=== PATIENT | female | born 1985 | race Caucasian/White ===

== ENCOUNTER 2018-01-10 15:11 | Emergency (ER) | payer MEDICAID, SELFPAY ==
[2018-01-10 15:12] VITALS: BP 169/90; PULSE 111; RESP 18; TEMP 37.1; O2SAT 95; BMI 44.2
[2018-01-10 15:40] LABS: Red Blood Cells-Urine 0 SEEN /hpf (0-5)
[2018-01-10] MEDS: 0.9% Normal Saline 1,000 ML 1000 ML IV (15:43)
[2018-01-10] MEDS: Acetaminophen 500 MG Tablet 1000 MG PO (15:43)
[2018-01-10 15:47] LABS: Absolute Lymphocyte Count 3.05 X10^3/ul (0.83-4.51); Absolute Neutrophil Count 3.3 X10^3/uL (2.0-7.7); Basophil# 0.04 X10^3/uL; Basophil% 0.5 % (0-1); Eosinophil# 0.07 X10^3/uL; Eosinophils% 0.9 % (0-5); Hematocrit 41.2 % (37-47); Hemoglobin 13.4 g/dl (12.0-15.0); Lymphocyte # 3.05 X10^3/ul (4.0); Lymphocyte % 40.7 % (19-41); Mean Corp Hgb Conc 32.5 g/gl (32-36); Mean Corpuscular Hgb 30.5 pg (27.0-32.0); Mean Corpuscular Volume 93.6 fL (81-99); Mean Platelet Vol. 8.8 fl (6.2-12.0); Monocyte# 0.99 X10^3/uL; Monocyte% 13.2 % (0-10); Neutrophil # 3.33 X10^3/uL (2.7-7.7); Neutrophil % 44.6 % (47-70); POSITIVE COUNT NO; POSITIVE DIFFERENTIAL NO; POSITIVE MORPHOLOGY NO; Platelet Count 264 K/mm3 (150-450); RBC Distribution Width CV 14.2 % (11.6-14.6); RBC Distribution Width SD 48.6 fl (35.1-43.9); White Blood Count 7.5 K/mm3 (4.4-11.0)
[2018-01-10 16:01] LABS: Anion Gap 8 (5-15); BUN 9 mg/dL (7-18); BUN/Creat Ratio 11.5 RATIO (10-20); Calcium,Total 8.9 mg/dL (8.5-10.1); Chloride 108 mmol/L (98-107); Creatinine, Serum 0.78 mg/dL (0.55-1.02); EST Glomerular Filtration Rate 90 mL/min (>60); Est Glom Filt Rate - Afr Amer 109 mL/min (>60); Estimated Creatinine Clearance 87.76 ml/min; Glucose 86 mg/dL (74-106); Potassium 3.6 mmol/L (3.5-5.1); Sodium Level 141 mmol/L (136-145)
[2018-01-10 16:03] LABS: Color, Urine Yellow (Yellow); Glucose, Dipstick Normal (Normal); Ketone-Dipstick 5 mg/dl (Negative); Leukocyte Esterase-Dipstick 25 /ul (Negative); Nitrite-Dipstick Negative (Negative); Occult Blood-Urine Negative /ul (Negative); Protein-Dipstick 30 mg/dl (Negative); Urine Bilirubin Dipstick Negative (Negative); Urine Clarity Clear (Clear); Urine Urobilinogen 1 mg/dl (Normal); Urine pH 6.5 (5.0 - 8.0)
[2018-01-10 16:09] LABS: Bacteria 1+ /hpf (None Seen); Mucous, Urine 1+ /hpf (<or=2+); Squamous Epithelial Cells - UA 0-5 SEEN /hpf (5-10); White Blood Cells 0-5 SEEN /hpf (0-5)
[2018-01-10 16:44] LABS: hCG Titer Quant., Serum 8756 mIU/mL (<9 non-preg)
--- NOTE | 2018-01-10 17:47 | ED.VISSUMM ---
- ER Visit Summary Date of Service: 01/10/18 Chief Complaint: Abdominal pain History of Present Illness: The patient is a [address] Faheem Bermudez and Dr. Richie Sharpe III. She reports that she took a home test 2 weeks ago that was positive. She reports that she has had lower right abdominal pain for the past 2 weeks. She reports that it is a dull pain is 10 out of 10 at worst and 710 currently. Is worsened by laying on her right side. She relieved by nothing. She denies any vaginal bleeding or discharge. She is a . She reports that she has left shoulder pain began approximate one half weeks ago. This is not relieved with standing. It is not worsened by laying down. She does report that is worsened by movement. She denies any trauma. Physical Examination: Vitals: Stable. Afebrile. General: Well-nourished and well-developed. Head: Normocephalic atraumatic. Neck: Supple, no lymphadenopathy. No JVD. Nontender. Cardiovascular: Regular rate and rhythm. No murmurs. Respiratory: No respiratory distress. Clear to auscultation bilaterally. Abdominal: Soft, mild tenderness palpation the right adnexal region, nondistended, normal bowel sounds. No guarding, rebound, or peritoneal signs. Back: Nontender. Extremities: Nontender, no edema. Skin: Normal color, no rash. Neurologic: Alert and oriented ?3. Cranial nerves II through XII are intact. Normal strength and sensation. Psych: Normal affect. Test Results: CBC is more for 7 neutrophils 45 monocytes 13. Chem-7 is more for chloride 108. UA is marked for leukocytes and 1+ bacteria. Quantitative hCG is 8756. Blood type is O-. Transvaginal ultrasound shows a single intrauterine 6 weeks and 4 days. Emergency Department Course and Treatment: Patient was treated with Keflex p.o. and her urine was sent for culture. She was given Tylenol p.o. and is resting comfortably. Treatment Plan: Patient was discussed Dr. Faheem Bermudez. She will be discharged with instructions to follow-up with her next week as previously scheduled. Return to the emergency department for any worsening symptoms. Disposition: To home in improved and stable condition. Impression: 1. First trimester . 2. Bacteriuria. This note was generated with [employer] software. It may contain incorrect words, spelling, and punctuation that were not noted in review of the chart prior to signing ED Disposition - Plan for ED Patient: Disposition: Home or Assisted Living Chief Complaint: Instructions: ED Care Prescriptions: Ondansetron [Zofran Odt] 4 mg PO Q8H PRN PRN #10 tablet PRN Reason: Nausea Cephalexin [Keflex] 500 mg PO BID #14 capsule Referrals: Jayleen Marrufo MD [STAFF PHYSICIAN] - Additional Instructions: Follow up with Dr. Marrufo in 2-3 weeks if you're improving. Follow up within 1 week if you're not improving.
[2018-01-10 17:50] VITALS: BP 108/73; PULSE 64; RESP 18; O2SAT 99
[2018-01-10] MEDS: Cephalexin 250 MG Capsule 500 MG PO (18:00)
== END 2018-01-10 18:07 | disposition home or self-care (01) ==
PROVIDERS: Emergency Provider Emergency Medicine; Family Provider Family Medicine; PCP Family Medicine
DX: O28.8 Other abnormal findings on antenatal screening of mother (principal); R10.31 Right lower quadrant pain; M25.512 Pain in left shoulder; R51 Headache; R05 Cough; Z3A.01 Less than 8 weeks gestation of pregnancy
CPT/HCPCS: 76817; 80048; 81001; 84702; 85025; 86900; 87086; 87088; 96360; 96361; 99284; J7030; A4216

== ENCOUNTER → 2018-01-15 16:38 | Outpatient (CLI) | payer MEDICAID, SELFPAY ==
[2018-01-15 17:19] LABS: Absolute Lymphocyte Count 2.78 X10^3/ul (0.83-4.51); Absolute Neutrophil Count 3.4 X10^3/uL (2.0-7.7); Basophil# 0.04 X10^3/uL; Basophil% 0.5 % (0-1); Eosinophil# 0.12 X10^3/uL; Eosinophils% 1.6 % (0-5); Hematocrit 39.8 % (37-47); Hemoglobin 12.9 g/dl (12.0-15.0); Lymphocyte # 2.78 X10^3/ul (4.0); Lymphocyte % 38.1 % (19-41); Mean Corp Hgb Conc 32.4 g/gl (32-36); Mean Corpuscular Hgb 30.4 pg (27.0-32.0); Mean Corpuscular Volume 93.6 fL (81-99); Monocyte# 1.01 X10^3/uL; Monocyte% 13.8 % (0-10); Neutrophil # 3.35 X10^3/uL (2.7-7.7); Platelet Count 259 K/mm3 (150-450); Red Blood Count 4.25 M/mm3 (4.2-5.4); White Blood Count 7.3 K/mm3 (4.4-11.0)
[2018-01-15 17:20] LABS: POSITIVE COUNT NO; POSITIVE DIFFERENTIAL NO; POSITIVE MORPHOLOGY NO
[2018-01-15 18:00] LABS: Glucose Challenge Gest 1H 50g 95 mg/dL (70-140)
[2018-01-15 18:45] LABS: HIV - WCH Non-Reactive (Nonreactive); Rubella IgG 60.6 IU/mL
[2018-01-17 03:50] LABS: Rapid Plasmin Reagin (RPR) NONREACTIVE (NONREACTIVE)
[2018-01-17 11:37] LABS: HEPATITIS B SURFACE AG Negative (Negative)
== END ==
PROVIDERS: Family Provider Family Medicine; PCP Family Medicine; Visit Provider Obstetrics & Gynecology
DX: Z34.90 Encounter for supervision of normal pregnancy, unspecified, unspecified trimester (principal)
CPT/HCPCS: 36415; 82950; 85025; 86592; 86703; 86762; 86850; 86900; 87340

== ENCOUNTER → 2018-01-15 17:36 | Outpatient (CLI) | payer MEDICAID, SELFPAY ==
[2018-01-15 20:31] LABS: Chlamydia Trachomatis by PCR Negative (Negative); Neisserai gonorrhoeae by PCR Negative (Negative); Probe Check PASS; Sample Adequacy Control PASS; Specimen Processing Control PASS
[2018-01-23 11:48] LABS: HPV APTIMA, High Risk Negative (Negative)
== END ==
PROVIDERS: Visit Provider Obstetrics & Gynecology
DX: Z12.4 Encounter for screening for malignant neoplasm of cervix (principal); Z34.90 Encounter for supervision of normal pregnancy, unspecified, unspecified trimester
CPT/HCPCS: 87086; 87088; 87106; 87491; 87591; 88175; G0145

== ENCOUNTER 2018-02-04 14:51 | Day surgery (SDC) | payer MEDICAID, SELFPAY ==
[2018-02-04] VITALS (8 sets, daily range): BP systolic 104–147; BP diastolic 71–99; PULSE 85–124; RESP 18–20; TEMP 36.6–36.9; O2SAT 93–99; BMI 44.4
--- NOTE | 2018-02-04 13:30 | POC_PTH ---
PATIENT: AISHWARYA JONES [place] [facility] [id number] AGE/SX: 32/F ROOM: RE02/04/[address]: Dr. Yadira Blandon MD : 1985 BED: DIS: 02/04/2018 SPEC #: [id number] RECD: 02/05/18 10:06 STATUS: REY MARY #: [id number] MINA: 02/04/18 13:[address]: Yadira Blandon DEPT: SURGICAL PATHOLOGY RECD BY: Yariel Doyle ENTERED: 02/05/18 12:20 SP TYPE: PROD CONC OTHR DR: Dr. Richie Sharpe III, MD Tissues: Product of conception, NOS Procedures: Surgery Specimen Level IV HEADER OPERATION: Suction dilation and curettage PRE-OP DIAGNOSIS: Inevitable SAB TISSUE SUBMITTED: Products of conception MICROSCOPIC DIAGNOSIS Products of conception: [place], gestational endometrium and immature chorionic villi (products of conception). SJ:marcia 02/06/18 MICROSCOPIC DESCRIPTION Slides are reviewed. GROSS DESCRIPTION Received in fixative is one container labeled with the patient's name and designated products of conception. The specimen consists of multiple fragments of pink hemorrhagic soft tissue that in aggregate measure 7 x 5 x 2 cm. tissue is not identified. Business Solution Analyst sections are submitted in two cassettes. / JAY JAY:marcia 02/05/18 TC:5 CPT: 17306
[2018-02-04 13:49] LABS: Absolute Lymphocyte Count 1.74 X10^3/ul (0.83-4.51); Absolute Neutrophil Count 2.8 X10^3/uL (2.0-7.7); Basophil# 0.02 X10^3/uL; Basophil% 0.4 % (0-1); Eosinophil# 0.05 X10^3/uL; Eosinophils% 0.9 % (0-5); Hematocrit 37.5 % (37-47); Hemoglobin 12.3 g/dl (12.0-15.0); Lymphocyte # 1.74 X10^3/ul (4.0); Lymphocyte % 32.3 % (19-41); Mean Corp Hgb Conc 32.8 g/gl (32-36); Mean Corpuscular Hgb 30.4 pg (27.0-32.0); Mean Corpuscular Volume 92.6 fL (81-99); Mean Platelet Vol. 8.6 fl (6.2-12.0); Monocyte# 0.74 X10^3/uL; Monocyte% 13.7 % (0-10); Neutrophil # 2.83 X10^3/uL (2.7-7.7); Neutrophil % 52.5 % (47-70); Platelet Count 238 K/mm3 (150-450); RBC Distribution Width CV 13.9 % (11.6-14.6); Red Blood Count 4.05 M/mm3 (4.2-5.4); White Blood Count 5.4 K/mm3 (4.4-11.0)
[2018-02-04 13:50] LABS: POSITIVE COUNT NO; POSITIVE DIFFERENTIAL NO; POSITIVE MORPHOLOGY NO
[2018-02-04 14:26] LABS: hCG Titer Quant., Serum 1008 mIU/mL (<9 non-preg)
--- NOTE | 2018-02-04 14:31 | NURSING ---
DR WENDI HOLLEY
--- NOTE | 2018-02-04 14:36 | NURSING ---
DR ADAME RETURNED CALL
--- NOTE | 2018-02-04 14:45 | ED.VISSUMM ---
- ER Visit Summary Date of Service: 02/04/18 Chief Complaint: [Vaginal bleeding] History of Present Illness: The patient is a 32 F [is the emergency department complaint of vaginal bleeding that started around 11:30 AM today. Patient states that she is about 10 weeks and her last menstrual period was November 24. Patient's METAL MINE INSPECTOR is Dr. Marrufo whom she saw yesterday in the office at which time patient had an ultrasound that showed demise. Patient has O- blood type and was started on RhoGam yesterday. Patient states that she went through more than 4 pads an hour since the bleeding is started and she describes lower abdominal pelvic cramping. Patient states she is passing large clots. She denies feeling lightheaded or dizzy at this time. Patient is .] Physical Examination: [HEENT-PERRLA, EOMI. Cranial nerves II through XII grossly intact. TMs clear. Mucous membranes moist. No adenopathy. Cardiovascular-regular rate and rhythm without murmur or ectopy Lungs-clear to auscultation, chest wall stable without crepitus or subcu emphysema Abdomen-normoactive bowel sounds, soft, nontender, no rebound or rigidity, no peritoneal signs. Pelvic exam-patient has normal external genitalia. On speculum exam large amount of blood and cloudy immediately exited through the speculum as it was inserted. Patient continues to bleed and I do not have access to ring forceps at this time to attempt to evacuate all the blood out of the vaginal vault. Extremities-intact ?4, normal range of motion, normal pulses, atraumatic] Test Results: [CBC with differential obtained for white count 5.4, hemoglobin 12, hematocrit 37.5, platelets 238. Blood type is O-. Type and screen was sent.] Emergency Department Course and Treatment: [I discussed case with Dr. Schmitt BN that Dr. Marrufo is not available today] patient will be evaluated and likely will require D&C and OR. Treatment Plan: [2 OR today for D&C] Disposition: [Admit] Impression: [Vaginal bleeding secondary to spontaneous of an incomplete] This note was generated with [employer] software. It may contain incorrect words, spelling, and punctuation that were not noted in review of the chart prior to signing ED Disposition - Plan for ED Patient: Chief Complaint: Vag Bld, Preg Referrals: Richie Sharpe III, MD [Primary Care Provider] -
--- NOTE | 2018-02-04 14:49 | ED.DCSUM_ITS ---
- ER Visit Summary Date of Service: 02/04/18 Chief Complaint: [Vaginal bleeding] History of Present Illness: The patient is a 32 F [is the emergency department complaint of vaginal bleeding that started around 11:30 AM today. Patient states that she is about 10 weeks and her last menstrual period was November 24. Patient's FRAME CLEANER is Dr. Marrufo whom she saw yesterday in the office at which time patient had an ultrasound that showed demise. Patient has O- blood type and was started on RhoGam yesterday. Patient states that she went through more than 4 pads an hour since the bleeding is started and she describes lower abdominal pelvic cramping. Patient states she is passing large clots. She denies feeling lightheaded or dizzy at this time. Patient is .] Physical Examination: [HEENT-PERRLA, EOMI. Cranial nerves II through XII grossly intact. TMs clear. Mucous membranes moist. No adenopathy. Cardiovascular-regular rate and rhythm without murmur or ectopy Lungs-clear to auscultation, chest wall stable without crepitus or subcu emphysema Abdomen-normoactive bowel sounds, soft, nontender, no rebound or rigidity, no peritoneal signs. Pelvic exam-patient has normal external genitalia. On speculum exam large amount of blood and cloudy immediately exited through the speculum as it was inserted. Patient continues to bleed and I do not have access to ring forceps at this time to attempt to evacuate all the blood out of the vaginal vault. Extremities-intact ?4, normal range of motion, normal pulses, atraumatic] Test Results: [CBC with differential obtained for white count 5.4, hemoglobin 12 , hematocrit 37.5, platelets 238. Blood type is O-. Type and screen was sent.] Emergency Department Course and Treatment: [I discussed case with Dr. Schmitt BN that Dr. Marrufo is not available today] patient will be evaluated and likely will require D&C and OR. Treatment Plan: [2 OR today for D&C] Disposition: [Admit] Impression: [Vaginal bleeding secondary to spontaneous of an incomplete ] This note was generated with [employer] software. It may contain incorrect words, spelling, and punctuation that were not noted in review of the chart prior to signing ED Disposition - Plan for ED Patient: Chief Complaint: Vag Bld, Preg Referrals: Richie Sharpe III, MD [Primary Care Provider] -
--- NOTE | 2018-02-04 15:14 | ED.RN ---
ASSISTED PT IN CLEAN UP AFTER PELVIC. COPIOUS AMOUNT OF BLOOD AND CLOTS WERE NOTED. PT ASSISTED UP TO BSC, SHE DENIES ANY DIZZINESS.
--- NOTE | 2018-02-04 15:16 | ED.RN ---
1450 [facility] CALLED WANTING PT DOWN IN [place]. NOTIFIED MARIELY THAT CHECKLIST HAS NOT BEEN COMPLETED. STATES THEY WILL DO ALL PREP IN [place]. STATES SHE WILL SEND SOMEONE TO GET PT.
--- NOTE | 2018-02-04 15:28 | PCM.DC.D&C ---
Discharge Diet: No Restrictions Discharge Activity: May not drive while taking narcotic pain medications., May Shower, May Take a Tub Bath Return to work on:: 02/06/18 May resume sexual activity in: 1-2 weeks Call your doctor if you observe: Fever of 101 or Higher, Inability to have a bowel movement, Using more than one pad per hour, Uncontrolled pain Allergies/Adverse Reactions: Allergies No Known Allergies Allergy (Verified 02/04/18 13:04) Medications to take at Discharge Ondansetron [Zofran Odt] 4 mg PO Q8H PRN PRN #10 tab 01/10/18 Pnv No.122/Iron/Folic Acid [ Multi Tablet] 1 ea PO DAILY 01/10/18 Acetaminophen/Codeine #3 [Tylenol#3] 1 tab PO Q6H PRN PRN 2 Days #6 tab 02/04/18 The following prescriptions were given: Acetaminophen/Codeine #3 [Tylenol#3] 1 tab PO Q6H PRN PRN 2 Days #6 tab PRN Reason: Mod-Severe Pain (4-02/26) Primary Care Physician: Richie Sharpe III, MD [Primary Care Provider] - Test Results: Test results from this visit will be discussed in further detail at your follow-up appointment, if applicable. Please Follow Up With: Jayleen Marrufo MD When: in 1-2 wks.
--- NOTE | 2018-02-04 15:31 | DCINST_ITS ---
Discharge Diet: No Restrictions Discharge Activity: May not drive while taking narcotic pain medications., May Shower, May Take a Tub Bath Return to work on:: 02/06/18 May resume sexual activity in: 1-2 weeks Call your doctor if you observe: Fever of 101 or Higher, Inability to have a bowel movement, Using more than one pad per hour, Uncontrolled pain Allergies/Adverse Reactions: Allergies No Known Allergies Allergy (Verified 02/04/18 13:04) Medications to take at Discharge Ondansetron [Zofran Odt] 4 mg PO Q8H PRN PRN #10 tab 01/10/18 Pnv No.122/Iron/Folic Acid [ Multi Tablet] 1 ea PO DAILY 01/10/18 Acetaminophen/Codeine #3 [Tylenol#3] 1 tab PO Q6H PRN PRN 2 Days #6 tab The following prescriptions were given: Acetaminophen/Codeine #3 [Tylenol#3] 1 tab PO Q6H PRN PRN 2 Days #6 tab PRN Reason: Mod-Severe Pain (4-02/26) Primary Care Physician: Richie Sharpe III, MD [Primary Care Provider] - Test Results: Test results from this visit will be discussed in further detail at your follow- up appointment, if applicable. Please Follow Up With: Jayleen Marrufo MD When: in 1-2 wks.
[2018-02-04] MEDS: Methylergonovine 0.2 MG/ML Ampul IM (15:45)
--- NOTE | 2018-02-04 16:30 | SUR.PHASEII ---
pt in Phase 2 status in PACU. parents at bedside.
--- NOTE | 2018-02-04 18:39 | OP.PCM_ITS ---
Operative Report Date of Procedure: 02/04/18 - Inevitable SAG Date of Procedure: 02/04/18 Pre-Operative Diagnosis: Inevitable 7 2/7 wk EGA by CRL on sono 02/03/18 Post-Operative Diagnosis: Inevitable 7 2/7 wk EGA by CRL on sono 02/03/18 Surgery/Procedure Performed:: Suction D and C Anesthesia: Silvia Christensen CRNA Mac IV sedation and 10 cc paracervical block 1% lidocaine without epinephrine Estimated Blood Loss (mL): Minimal Complications: none Drains: Red Painting catheter 100 cc estimated prior to case. Fluids Replaced: LR Findings: Uterus sounds to 10 cm Active bleeding was noted. No cervical lesions noted. Tissue consistent with products of conception and clots, blood withdrawn PATH: Products of conception, uterine curettings. Narrative Account: After the risks, benefits, alteratives of the procedure were reviewed with the patient informed consent was obtained. The patient was taken to the OR with IV running and placed in dorsal supine position on the operating table. She was given MAC IV sedation and then repositioned to the dorsal lithotomy position and was prepped and draped in the usual sterile fashion. The bladder was drained with a red rubber catheter. A Graves speculum was placed, and a 10 cc 1 % lidocaine paracervical block was then administered. The anterior lip of the cervix was grasped with a single toothed tenaculum. The cervix was then easily dilated to allow admission of an 7 mm curved suction curette tip. The suction curette was then placed to the uterine fundus, suction applied, and POC were obtained. After most of the products of conception were removed a sharp curettage was performed and good Crei was noted in all quadrants of the uterus. One final pass was conducted with the suction curette and the remaining products of conception and uterine curettings were removed. A sponge stick was then used to remove any remaining tissue and blood from the upper vagina and cervix . All instruments were then removed from the vagina and cervix. Excellent hemostasis was noted. The patient was awakened from general anesthesia and then transferred to her recovery room bed in stable condition after tolerating the procedure well. Sponge , instrument, and needle counts were correct x two. Medications given intraoperatively included: 10 cc 1% lidocaine, Methergine 0.2 mg IM x one, and Toradol 30 mg IV x one. For a complete listing of medications given intraoperatively, please see the anesthesia record.
--- NOTE | 2018-02-04 18:40 | PCM.HP.STD ---
Problem List (1) Inevitable Status: Acute (2) 7 weeks gestation of Status: Acute History of Present Illness Date of Admission: 02/04/18 Chief Complaint: heavy vaginal bleeding. The patient is a 32 year old female at 10 wk EGA by LMP diagnosed by Dr. Marrufo with missed yesterday in office and scheduled for suction D and C on 02/07/18, presents to [facility] ED with CC of heavy vaginal bleeding and cramping. Sono at 02/03/18 visit showed a nonviable 7w2 d CRL fetus. No active bleeding then. O negative blood type. RhoGAM was given for Rh Negative status 02/03/18. Per ED MD: hgb 12 g/dl and normal WBCs. Clinically stable, initial pulse 124 and anxious. 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 Started spotting yesterday with cramping VTE Information - Inpt Only VTE Present on Admission: No VTE Pharm Prophylaxis ordered?: No - Physical Exam General: Alert, Oriented x3, Cooperative, No apparent distress HEENT: Atraumatic, EOMI, Normocephalic Oral: Moist Mucosa Neck: Supple Extremities: No clubbing, No cyanosis, No edema Neurological: Cranial nerves II-XII grossly intact Psych/Mental Status: Normal Affect Comment: Pelvic exam: unable to perform adequate in ED 2/2 heavy vaginal bleeding. Vital Signs Temp Pulse Resp BP Pulse Ox 98.0 F 86 18 126/78 H 98 02/04/18 16:13 02/04/18 16:13 02/04/18 16:13 02/04/18 16:13 02/04/18 16:13 Oxygen Delivery Method Room Air Weight: 117.48 kg Body Mass Index (BMI) 44.4 Intake and Output for Last 24 Hours 02/02/18 02/03/18 02/04/18 23:59 23:59 23:59 Intake Total 400 / 400 Output Total 100 / 100 Balance 300 / 300 Laboratory Tests Past 24 Hrs 02/04/18 02/04/18 02/04/18 13:35 13:35 13:35 WBC 5.4 RBC 4.05 L Hgb 12.3 Hct 37.5 MCV 92.6 MCH 30.4 MCHC 32.8 RDW 13.9 RDW Differential 47.0 H Plt Count 238 MPV 8.6 Immature Gran % (Auto) 0.200 Neut % (Auto) 52.5 Lymph % (Auto) 32.3 [place] % (Auto) 13.7 H Eos % (Auto) 0.9 Baso % (Auto) 0.4 Absolute Neuts (auto) 2.8 Absolute Lymphs (auto) 1.74 Total Counted Not Reportable HCG, Quant 1008 H Blood Type O NEGATIVE A1 Antigen Typing Rho(D) Type Antibody Screen 02/04/18 13:55 WBC RBC Hgb Hct MCV MCH MCHC RDW RDW Differential Plt Count MPV Immature Gran % (Auto) Neut % (Auto) Lymph % (Auto) [place] % (Auto) Eos % (Auto) Baso % (Auto) Absolute Neuts (auto) Absolute Lymphs (auto) Total Counted HCG, Quant Blood Type Cancelled A1 Antigen Typing Cancelled Rho(D) Type Cancelled Antibody Screen NEGATIVE Assessment/Plan All Active Problems (Last Updated 02/04/18 @ 18:44 by Yadira Blandon MD) Supervision of normal (Acute) BMI greater than 40 (Acute) Family history of cystic fibrosis (Acute) (Acute) Rh negative status during (Acute) Inevitable (Acute) 7 weeks gestation of (Acute) no medical prob (Acute) 7 2/7 wk by CRL. 10 wk by LMP date. Inevitable Spontaneous Admit for suction D and C today [place] O neg, RhoGAM given in ofc per ED , on 02/04/18 R,B reviewed with patient prior to surgery. All questions answered to her satisfaction. Consents signed.
--- NOTE | 2018-02-04 18:44 | HP.PCM_ITS ---
Problem List (1) Inevitable Status: Acute (2) 7 weeks gestation of Status: Acute History of Present Illness Date of Admission: 02/04/18 Chief Complaint: heavy vaginal bleeding. The patient is a 32 year old female at 10 wk EGA by LMP diagnosed by Dr. Marrufo with missed yesterday in office and scheduled for suction D and C on 02/07/18, presents to [facility] ED with CC of heavy vaginal bleeding and cramping. Sono at 02/03/18 visit showed a nonviable 7w2 d CRL fetus. No active bleeding then. O negative blood type. RhoGAM was given for Rh Negative status 02/03/18. Per ED MD: hgb 12 g/dl and normal WBCs. Clinically stable, initial pulse 124 and anxious. 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 Started spotting yesterday with cramping VTE Information - Inpt Only VTE Present on Admission: No VTE Pharm Prophylaxis ordered?: No - Physical Exam General: Alert, Oriented x3, Cooperative, No apparent distress HEENT: Atraumatic, EOMI, Normocephalic Oral: Moist Mucosa Neck: Supple Extremities: No clubbing, No cyanosis, No edema Neurological: Cranial nerves II-XII grossly intact Psych/Mental Status: Normal Affect Comment: Pelvic exam: unable to perform adequate in ED 2/2 heavy vaginal bleeding. Vital Signs Temp Pulse Resp BP Pulse Ox 98.0 F 86 18 126/78 H 98 02/04/18 16:13 02/04/18 16:13 02/04/18 16:13 02/04/18 16:13 02/04/18 16:13 Oxygen Delivery Method Room Air Weight: 117.48 kg Body Mass Index (BMI) 44.4 Intake and Output for Last 24 Hours 02/02/18 02/03/18 02/04/18 23:59 23:59 23:59 Intake Total 400 / 400 Output Total 100 / 100 Balance 300 / 300 Laboratory Tests Past 24 Hrs 02/04/18 02/04/18 02/04/18 13:35 13:35 13:35 WBC 5.4 RBC 4.05 L Hgb 12.3 Hct 37.5 MCV 92.6 MCH 30.4 MCHC 32.8 RDW 13.9 RDW Differential 47.0 H Plt Count 238 MPV 8.6 Immature Gran % (Auto) 0.200 Neut % (Auto) 52.5 Lymph % (Auto) 32.3 [place] % (Auto) 13.7 H Eos % (Auto) 0.9 Baso % (Auto) 0.4 Absolute Neuts (auto) 2.8 Absolute Lymphs (auto) 1.74 Total Counted Not Reportable HCG, Quant 1008 H Blood Type O NEGATIVE A1 Antigen Typing Rho(D) Type Antibody Screen 02/04/18 13:55 WBC RBC Hgb Hct MCV MCH MCHC RDW RDW Differential Plt Count MPV Immature Gran % (Auto) Neut % (Auto) Lymph % (Auto) [place] % (Auto) Eos % (Auto) Baso % (Auto) Absolute Neuts (auto) Absolute Lymphs (auto) Total Counted HCG, Quant Blood Type Cancelled A1 Antigen Typing Cancelled Rho(D) Type Cancelled Antibody Screen NEGATIVE Assessment/Plan All Active Problems (Last Updated 02/04/18 @ 18:44 by Yadira Blandon MD) Supervision of normal (Acute) BMI greater than 40 (Acute) Family history of cystic fibrosis (Acute) (Acute) Rh negative status during (Acute) Inevitable (Acute) 7 weeks gestation of (Acute) no medical prob (Acute) 7 2/7 wk by CRL. 10 wk by LMP date. Inevitable Spontaneous Admit for suction D and C today [place] O neg, RhoGAM given in ofc per ED , on 02/04/18 R,B reviewed with patient prior to surgery. All questions answered to her satisfaction. Consents signed.
== END 2018-02-04 16:55 | disposition home or self-care (01) ==
LOC: SDC 14:53
PROVIDERS: Emergency Provider Emergency Medicine; Family Provider Family Medicine; PCP Family Medicine; Visit Provider Obstetrics & Gynecology
PROC: (CPT 59812; principal; 2018-02-04 13:15)
DX: O03.4 Incomplete spontaneous abortion without complication (principal)
CPT/HCPCS: 01965; 59812; 84702; 85025; 86850; 86900; 88305; 99282; J7120; A4216; J2405

== ENCOUNTER → 2018-07-24 14:44 | Outpatient (CLI) | payer OTHER, SELFPAY ==
[2018-07-24 14:08] VITALS: BMI 43.8
== END ==
PROVIDERS: Family Provider Family Medicine; PCP Family Medicine; Referring Provider Obstetrics & Gynecology; Visit Provider Obstetrics & Gynecology
DX: E66.9 Obesity, unspecified (principal)
CPT/HCPCS: 36415; 84439; 84443

== ENCOUNTER → 2018-08-11 08:40 | Outpatient (CLI) | payer OTHER, SELFPAY ==
[2018-07-24 14:08] VITALS: BMI 43.8
--- NOTE | 2018-08-11 08:41 | US_ITS ---
STUDY: ULTRASOUND BREAST - LEFT REASON FOR EXAM: Female, 32 years old. Palpable lump left breast. TECHNIQUE: Axial and longitudinal images of the LEFT breast were performed with a high resolution ultrasound transducer. COMPARISON: Comparison is made with prior mammogram done earlier in the day. FINDINGS: LEFT Breast: The palpable abnormality corresponds to a 0.8 cm x 1.3 cm x 0.4 cm slightly echogenic well-defined nodule at the 8:00 position breast at 3 cm from the nipple. This most likely represents a small lipoma. US/Breast Limited Unilateral IMPRESSION: Findings suggestive of a small lipoma at the palpable abnormality. ASSESSMENT CATEGORY: BIRADS Category 2: Benign. A letter regarding these results will be sent to the patient by the facility within 30 days. Electronically Signed: Gurmeet Whelan, at 10:19 EDT , Service support ,
--- NOTE | 2018-08-11 08:41 | BI_ITS ---
MAMMOGRAPHY - BILATERAL DIAGNOSTIC REASON FOR EXAM: Female, 32 years old. Left almond shaped breast lump. PERTINENT HISTORY: Non-contributory. TECHNIQUE: Digital bilateral breast yulia (3D mammographic acquisition) in the CC and MLO projections. 2-D mediolateral oblique (MLO) and craniocaudad (CC) views of both breasts were obtained. CAD: Full Field Digital Mammography with Computer Added Detection was performed. COMPARISON: None. Baseline examination. FINDINGS: Breast Composition: There are scattered areas of fibroglandular density. There are no dominant masses or suspicious calcifications. No other significant abnormalities are identified. BI/DIAG MAMM W/CAD, BILAT IMPRESSION: Negative diagnostic mammogram. With the patient's history of a left breast lump, correlation with ultrasound is recommended. ASSESSMENT CATEGORY: BIRADS Category 0: Incomplete. Need additional imaging evaluation. A letter regarding these results will be sent to the patient by the facility within 30 days. Approximately 10% of breast cancers are not detected by mammography. A normal mammogram should not delay biopsy of a clinically suspicious abnormality. Electronically Signed: Gurmeet Whelan, at 10:18 EDT , Service support ,
== END ==
PROVIDERS: Referring Provider Obstetrics & Gynecology; Visit Provider Obstetrics & Gynecology
DX: N63.20 Unspecified lump in the left breast, unspecified quadrant (principal)
CPT/HCPCS: 76642; 77066

== ENCOUNTER 2019-03-07 10:28 | Emergency (ER) | payer OTHER, SELFPAY ==
[2018-10-15 14:47] VITALS: BMI 46.2
[2019-03-07 10:29] VITALS: BP 161/88; PULSE 109; RESP 19; TEMP 37.2; O2SAT 98; BMI 46.5
[2019-03-07 10:44] VITALS: TEMP 37.2
--- NOTE | 2019-03-07 10:45 | US_ITS ---
STUDY: ABDOMINAL ULTRASOUND - RIGHT UPPER QUADRANT REASON FOR VISIT: Female, 33 years old abdominal pain, with slight TECHNIQUE: Ultrasound evaluation of the right upper quadrant was performed with real-time and static robb-scale imaging. TECHNICAL QUALITY: Adequate. COMPARISON: None. FINDINGS: Liver: The liver measures 17 cm. There is increased echogenicity of the liver. The bile ducts are within normal limits. There is hepatic color flow. The direction of portal flow is hepatopetal. There is no demonstrated mass lesion. Gallbladder: Normal distended gallbladder. The gallbladder wall measures 2 mm. There is a negative sonographic Kaplan's sign. There is no pericholecystic fluid. There are no gallstones. Common Bile Duct (C.B.D.): The common bile duct measures 5 mm. Pancreas: There is normal echogenicity of the visualized pancreas. There is no demonstrated pancreatic mass or cyst. Right Kidney: Normal size of the right kidney. The right kidney measures 11.0 x 6.1 x 6.1 cm. Normal renal cortex. The right cortex measures 2.2 cm. There is no demonstrated renal mass or cyst. There is no right hydronephrosis. US/Gallbladder IMPRESSION: No gallstones or biliary obstruction. Echogenic liver is nonspecific but most commonly associated with hepatic steatosis. Electronically Signed: Sánchez Alejandre MD ([place]oks) at 12:09 EDT , Service support ,
--- NOTE | 2019-03-07 10:51 | ED.VIS.GEN ---
History of Present Illness Chief Complaint: Abd Pain Informant: Patient Onset: Days Context: Gradual Onset Timing: Intermittent Current Severity: Moderate Maximum Severity: Moderate Narrative: 33-year-old female with no reported past medical history presents with intermittent right lower quadrant pain. Patient states pain has been coming and going over the last week. Over the last 1 to 2 days it has been constant. She denies any history of kidney stones, hematuria. Last measure. Was partially 2 weeks ago. Denies any vaginal bleeding or discharge. States that in the past she has had ovarian cyst. Admits to nausea but no vomiting. Has been having regular bowel movements. Denies any fever. Prior similar symptoms: No Recent Illness/Hospitalization: No Past Medical History - Allergies and Home Meds Allergies/Adverse Reactions: Allergies No Known Allergies Allergy (Verified 03/07/19 10:28) Primary Care Physician: Jayleen Marrufo MD [STAFF PHYSICIAN] - Prior records reviewed: Yes Surgical History: tonsillectomy Smoking Status: Never smoker Review of Systems General: Denies: Chills, Fever, Sweats Eyes: Denies: Visual changes - bilaterally, Diplopia ENT: Denies: Rhinorrhea, Sore throat Cardiovascular: Denies: Chest pain, Palpitations Respiratory: Denies: Dyspnea, Cough, Dyspnea on exertion Gastrointestinal: Reports: Abdominal pain, Nausea. Denies: Vomiting, Diarrhea, Melena, Hematochezia Genitourinary: Denies: Dysuria, Hematuria, Frequency Musculoskeletal: Denies: Back pain, Extremity Pain Skin: Denies: Rash, Abrasions, Wounds Neurological: Denies: Headache, Weakness, Numbness Physical Exam Vital Signs/Narrative: Vital Signs Temp Pulse Resp BP Pulse Ox 03/07/19 10:44 98.9 F 03/07/19 10:29 98.9 F 109 H 19 H 161/88 H 98 General: Well developed, Obese, No Acute Distress Head: Normocephalic, Atraumatic Eyes: Perrl, EOMI ENT: Moist mucous membranes, No rhinorrhea Neck: Supple, Nontender Cardiovascular: Regular rate, Regular rhythm, No murmurs Respiratory: No distress, CTA bilaterally, Chest nontender Abdomen: Soft, - - Tenderness in the suprapubic and right lower quadrant region. Patient has more pronounced tenderness in the right upper quadrant, positive Kaplan sign. Voluntary guarding with palpation right upper quadrant. Non-peritoneal. Back: Nontender, Normal Inspection Extremities: Nontender, No edema Skin: Normal color, No rash Neurological: Alert, Oriented x3, Cranial nerves II-XII grossly intact, Normal Strength, Normal Sensation Psychological: Normal affect, Normal Mood Diagnostic/Tx/Re-eval Clinical Impression(s) from Imaging Studies Gallbladder Ultrasound 03/07/19 10:45 IMPRESSION: No gallstones or biliary obstruction. Echogenic liver is nonspecific but most commonly associated with hepatic steatosis. Electronically Signed: Sánchez Alejandre MD (Brooks) at 12:09 EDT , Service support , Abdomen/Pelvis CT 03/07/19 11:50 IMPRESSION: 1. Normal CT appearance of the appendix. No acute inflammatory process. 2. 3.4 cm right ovarian cyst without pelvic inflammation or free fluid. 3. 1 cm uterine fibroid. Electronically Signed: Sánchez Alejandre MD (Brooks) at 12:31 EDT , Service support , Abnormal Lab Results 03/07/19 03/07/19 03/07/19 11:08 11:08 11:20 WBC 6.7 RBC 4.40 Hgb 13.5 Hct 41.5 MCV 94.3 MCH 30.7 MCHC 32.5 RDW Std Deviation 49.1 H RDW Coeff of Richard 14.0 Plt Count 240 MPV 9.1 Immature Gran % (Auto) 0.600 Neut % (Auto) 53.3 Lymph % (Auto) 32.2 [place] % (Auto) 11.0 H Eos % (Auto) 2.3 Baso % (Auto) 0.6 Absolute Neuts (auto) 3.6 Absolute Lymphs (auto) 2.14 Nucleated RBC % 0 Sodium 140 Potassium 3.9 Chloride 109 H Carbon Dioxide 27.0 Anion Gap 4 L BUN 10 Creatinine 0.70 Estim Creat Clear Calc 100.94 Est GFR (MDRD) Af Amer 123 Est GFR (MDRD) Non-Af 102 BUN/Creatinine Ratio 14.4 Glucose 91 Calcium 8.5 Total Bilirubin 0.60 AST 29 ALT 42 Alkaline Phosphatase 159 H Total Protein 6.9 Albumin 3.3 Globulin 3.6 Albumin/Globulin Ratio 0.9 Lipase 64 L Urine Color Urine Clarity Urine pH Ur Specific [place] Urine Protein Urine Glucose (UA) Urine Ketones Urine Occult Blood Urine Nitrite Urine Bilirubin Urine Urobilinogen Ur Leukocyte Esterase Urine RBC Urine WBC Ur Squamous Epith Cells Urine Bacteria Urine Mucus Urine Test Negative 03/07/19 11:20 WBC RBC Hgb Hct MCV MCH MCHC RDW Std Deviation RDW Coeff of Richard Plt Count MPV Immature Gran % (Auto) Neut % (Auto) Lymph % (Auto) [place] % (Auto) Eos % (Auto) Baso % (Auto) Absolute Neuts (auto) Absolute Lymphs (auto) Nucleated RBC % Sodium Potassium Chloride Carbon Dioxide Anion Gap BUN Creatinine Estim Creat Clear Calc Est GFR (MDRD) Af Amer Est GFR (MDRD) Non-Af BUN/Creatinine Ratio Glucose Calcium Total Bilirubin AST ALT Alkaline Phosphatase Total Protein Albumin Globulin Albumin/Globulin Ratio Lipase Urine Color Yellow Urine Clarity Clear Urine pH 6.0 Ur Specific [place] 1.010 Urine Protein Negative Urine Glucose (UA) Normal Urine Ketones Negative Urine Occult Blood Negative Urine Nitrite Negative Urine Bilirubin Negative Urine Urobilinogen Normal Ur Leukocyte Esterase 25 H Urine RBC 0 SEEN Urine WBC 0-5 SEEN Ur Squamous Epith Cells 0-5 SEEN Urine Bacteria 0 SEEN Urine Mucus 0 SEEN Urine Test - Medical Decision Making 33-year-old female presents with abdominal pain. Symptoms have been going on for last week. More prevalent over the last 2 days. She appears well and nontoxic. Afebrile. Initial concern was for possible cholecystitis. Labs obtained and were unremarkable. Normal renal function, normal LFTs. Patient had a normal right upper quadrant ultrasound. CT abdomen pelvis was then obtained. CT showed right ovarian cyst with free fluid. I believe patient's pain is likely secondary to her cyst. I do not suspect ovarian torsion. patient was instructed to follow-up with her OB, use Tylenol ibuprofen for pain. Patient educated on signs and symptoms look out for including torsion, and reasons to return. Patient was in agreement and discharged home. Impression: 1. Right lower quadrant pain 2. Right ovarian cyst The patient was seen and evaluated with the resident, Dr. Deshpande. I do agree with above. Medical decision making was shared.. ED Disposition - Plan for ED Patient: Instructions: Ovarian Cyst Referrals: Jayleen Marrufo MD [STAFF PHYSICIAN] -
[2019-03-07] MEDS: Ketorolac 30 MG/ML Syringe IV (11:03)
[2019-03-07 11:28] LABS: Absolute Lymphocyte Count 2.14 X10^3/uL (0.83-4.51); Absolute Neutrophil Count 3.6 X10^3/uL (2.0-7.7); Basophil# 0.04 X10^3/uL; Basophil% 0.6 % (0-1); Eosinophil# 0.15 X10^3/uL; Eosinophils% 2.3 % (0-5); Hematocrit 41.5 % (37-47); Hemoglobin 13.5 g/dL (12.0-15.0); Lymphocyte # 2.14 X10^3/ul (4.0); Lymphocyte % 32.2 % (19-41); Mean Corp Hgb Conc 32.5 g/dL (32-36); Mean Corpuscular Hgb 30.7 pg (27.0-32.0); Mean Corpuscular Volume 94.3 fL (81-99); Mean Platelet Vol. 9.1 fl (6.2-12.0); Monocyte# 0.73 X10^3/uL; NRBC Flagged by Analyzer 0 % (0-5); Neutrophil # 3.55 X10^3/uL (2.7-7.7); Neutrophil % 53.3 % (47-70); Platelet Count 240 K/mm3 (150-450); RBC Distribution Width SD 49.1 fl (35.1-43.9); White Blood Count 6.7 K/mm3 (4.4-11.0)
[2019-03-07 11:35] LABS: Bacteria 0 SEEN /hpf (None Seen); Mucous, Urine 0 SEEN /hpf (<or=2+); Red Blood Cells-Urine 0 SEEN /hpf (0-5)
[2019-03-07 11:36] LABS: Color, Urine Yellow (Yellow); Glucose, Dipstick Normal (Normal); Ketone-Dipstick Negative (Negative); Leukocyte Esterase-Dipstick 25 /ul (Negative); Nitrite-Dipstick Negative (Negative); Occult Blood-Urine Negative /ul (Negative); Protein-Dipstick Negative (Negative); Urine Bilirubin Dipstick Negative (Negative); Urine Clarity Clear (Clear); Urine Urobilinogen Normal (Normal)
[2019-03-07 11:38] LABS: ALB/GLOB Ratio 0.9 RATIO (0.9-2.4); AST(SGOT) 29 U/L (15-37); Alanine Aminotransfer ALT/SGPT 42 U/L (13-56); Albumin, Serum 3.3 g/dL (3.2-5.0); Alkaline Phosphatase 159 U/L (45-117); Anion Gap 4 (5-15); BUN 10 mg/dL (7-18); BUN/Creat Ratio 14.4 RATIO (10-20); Calcium,Total 8.5 mg/dL (8.5-10.1); Chloride 109 mmol/L (98-107); EST Glomerular Filtration Rate 102 mL/min (>60); Est Glom Filt Rate - Afr Amer 123 mL/min (>60); Estimated Creatinine Clearance 100.94 ml/min; Globulin 3.6 g/dL (2.2-4.2); Glucose 91 mg/dL (74-106); Lipase 64 U/L (73-393); Potassium 3.9 mmol/L (3.5-5.1); Protein, Total 6.9 g/dL (6.4-8.2); Sodium Level 140 mmol/L (136-145)
[2019-03-07 11:39] LABS: Internal QC Validated? YES +Cl - CLEAR BKGD; Pregnancy, Urine Negative Negative
[2019-03-07 11:45] LABS: Squamous Epithelial Cells - UA 0-5 SEEN /hpf (5-10); White Blood Cells 0-5 SEEN /hpf (0-5)
--- NOTE | 2019-03-07 11:50 | CT_ITS ---
STUDY: CT ABDOMEN AND PELVIS WITH CONTRAST REASON FOR EXAM: Female, 33 years old. Right lower quadrant pain for one week RADIATION DOSAGE (If Supplied By Facility): CTDIvol = ( 17.07 ) mGy, DLP = ( 1361.15 ) mGycm TECHNIQUE: Transaxial images were obtained from the dome of the diaphragm to the symphysis pubis without oral contrast. IV 100mL Isovue-300 100 was administered. Sagittal and coronal images were reconstructed. Individualized dose optimization techniques were used for this CT. COMPARISON: None. FINDINGS: The visualized lung bases are unremarkable. The visualized portions of the heart are within normal limits. Normal liver. Normal gallbladder and extrahepatic biliary system. Normal spleen. Normal pancreas. Normal bilateral adrenal glands. Normal right kidney. Normal left kidney. Normal visualized stomach. Normal small intestine. Normal colon. The appendix is visualized and appears normal. Normal abdominal aorta. Normal inferior vena cava. Normal retroperitoneum. Normal urinary bladder. Small exophytic solid lesion of the anterior uterine fundus likely represents a fibroid. There is a 3.4 cm simple appearing cyst of the right ovary without adjacent inflammation. Normal abdominal wall. Normal osseous structures. CT/Abdomen/Pelvis W IV Cont ONLY IMPRESSION: 1. Normal CT appearance of the appendix. No acute inflammatory process. 2. 3.4 cm right ovarian cyst without pelvic inflammation or free fluid. 3. 1 cm uterine fibroid. Electronically Signed: Sánchez Alejandre MD ([place]) at 12:31 EDT , Service support ,
[2019-03-07 13:06] VITALS: BP 121/83; PULSE 67; RESP 14; O2SAT 97
== END 2019-03-07 13:07 | disposition home or self-care (01) ==
LOC: ED 11:14
PROVIDERS: Emergency Medicine; Emergency Provider Emergency Medicine; Family Provider Family Medicine; PCP Family Medicine
DX: R10.31 Right lower quadrant pain (principal); N83.201 Unspecified ovarian cyst, right side; D25.9 Leiomyoma of uterus, unspecified; Z79.3 Long term (current) use of hormonal contraceptives
CPT/HCPCS: 74177; 76705; 80053; 81001; 81025; 83690; 85025; 96374; 99282; A4216

== ENCOUNTER → 2019-04-27 07:51 | Outpatient (CLI) | payer OTHER, SELFPAY ==
[2019-04-15 09:36] VITALS: BMI 46.5
--- NOTE | 2019-04-27 07:55 | US_ITS ---
STUDY: ULTRASOUND OF THE FEMALE PELVIS - COMPLETE REASON FOR EXAM: Female, 33 years old. Pelvic pain. LMP: April 15, 2019. TECHNIQUE: Transabdominal and Transvaginal TECHNICAL QUALITY: Adequate. COMPARISON: None. FINDINGS: The uterus is anteverted and is in a midline position. The uterus measures 8.3 cm x 4.7 cm x 3.7 cm. There is a Nabothian cyst of the cervix. The endometrium measures 9.1 mm in thickness, and is hyperechoic. There is no demonstrated endometrial mass. There is no demonstrated myometrial mass. I.U.D. - The patient does not have an I.U.D. The right ovary is visualized. The right ovary measures 3.4 cm x 3.2 cm x 2.2 cm. A dominant follicle is seen within it measuring 1.4 cm x 1.7 cm x 1.3 cm. There is no visualized right adnexal mass or complex lesion. There is normal arterial and normal venous vascularity. The left ovary is visualized. The left ovary measures 2.2 cm x 1.7 cm x 1.6 cm. There is no left ovarian cyst or ovarian mass. There is no visualized left adnexal mass or complex lesion. There is normal arterial and normal venous vascularity. There is no fluid in the cul-de-sac. Polycystic ovary disease: No. US/Pelvic (Non ) IMPRESSION: Dominant follicle in the right ovary. Electronically Signed: Gurmeet Whelan, at 14:53 EST , Service support ,
--- NOTE | 2019-04-27 07:55 | US_ITS ---
STUDY: ULTRASOUND OF THE FEMALE PELVIS - COMPLETE REASON FOR EXAM: Female, 33 years old. Pelvic pain. LMP: April 15, 2019. TECHNIQUE: Transabdominal and Transvaginal TECHNICAL QUALITY: Adequate. COMPARISON: None. FINDINGS: The uterus is anteverted and is in a midline position. The uterus measures 8.3 cm x 4.7 cm x 3.7 cm. There is a Nabothian cyst of the cervix. The endometrium measures 9.1 mm in thickness, and is hyperechoic. There is no demonstrated endometrial mass. There is no demonstrated myometrial mass. I.U.D. - The patient does not have an I.U.D. The right ovary is visualized. The right ovary measures 3.4 cm x 3.2 cm x 2.2 cm. A dominant follicle is seen within it measuring 1.4 cm x 1.7 cm x 1.3 cm. There is no visualized right adnexal mass or complex lesion. There is normal arterial and normal venous vascularity. The left ovary is visualized. The left ovary measures 2.2 cm x 1.7 cm x 1.6 cm. There is no left ovarian cyst or ovarian mass. There is no visualized left adnexal mass or complex lesion. There is normal arterial and normal venous vascularity. There is no fluid in the cul-de-sac. Polycystic ovary disease: No. US/Transvaginal Non- IMPRESSION: Dominant follicle in the right ovary. Electronically Signed: Gurmeet Whelan, at 14:53 EST , Service support ,
== END ==
PROVIDERS: Family Provider Family Medicine; PCP Family Medicine; Referring Provider Nurse Practitioner Women's Health; Visit Provider Nurse Practitioner Women's Health
DX: N83.202 Unspecified ovarian cyst, left side (principal); R10.2 Pelvic and perineal pain
CPT/HCPCS: 76830; 76856; 93976

== ENCOUNTER → 2019-11-10 09:23 | Outpatient (CLI) | payer OTHER, SELFPAY ==
[2019-11-10 09:00] VITALS: BMI 46.5
[2019-11-10 12:38] LABS: Absolute Lymphocyte Count 2.09 X10^3/uL (0.83-4.51); Absolute Neutrophil Count 2.3 X10^3/uL (2.0-7.7); Basophil# 0.05 X10^3/uL; Eosinophil# 0.16 X10^3/uL; Eosinophils% 3.1 % (0-5); Hematocrit 42.6 % (37-47); Hemoglobin 13.7 g/dL (12.0-15.0); Lymphocyte # 2.09 X10^3/ul (4.0); Mean Corp Hgb Conc 32.2 g/dL (32-36); Mean Corpuscular Hgb 30.7 pg (27.0-32.0); Mean Corpuscular Volume 95.5 fL (81-99); Mean Platelet Vol. 9.6 fl (6.2-12.0); Monocyte# 0.65 X10^3/uL; Monocyte% 12.5 % (0-10); NRBC Flagged by Analyzer 0 % (0-5); Neutrophil # 2.26 X10^3/uL (2.7-7.7); Neutrophil % 43.2 % (47-70); Platelet Count 279 K/mm3 (150-450); RBC Distribution Width CV 14.3 % (11.6-14.6); RBC Distribution Width SD 49.8 fl (35.1-43.9); Red Blood Count 4.46 M/mm3 (4.2-5.4); White Blood Count 5.2 K/mm3 (4.4-11.0)
[2019-11-10 12:50] LABS: Vitamin B12 1753 pg/mL (211-911)
[2019-11-10 12:59] LABS: ALB/GLOB Ratio 0.9 RATIO (0.9-2.4); AST(SGOT) 27 U/L (15-37); Alanine Aminotransfer ALT/SGPT 44 U/L (13-56); Albumin, Serum 3.5 g/dL (3.2-5.0); Alkaline Phosphatase 197 U/L (45-117); Anion Gap 6 (5-15); BUN 11 mg/dL (7-18); BUN/Creat Ratio 14.7 RATIO (10-20); Calcium,Total 8.4 mg/dL (8.5-10.1); Chloride 109 mmol/L (98-107); Creatinine, Serum 0.75 mg/dL (0.55-1.02); EST Glomerular Filtration Rate 93 mL/min (>60); Est Glom Filt Rate - Afr Amer 112 mL/min (>60); Globulin 4.1 g/dL (2.2-4.2); Glucose 95 mg/dL (74-106); Potassium 4.2 mmol/L (3.5-5.1); Protein, Total 7.6 g/dL (6.4-8.2); Sodium Level 139 mmol/L (136-145); T4 Free Direct 1.08 ng/dL (0.76-1.46); Thyroid Stim Hormone (TSH) 1.76 uIU/mL (0.358-3.74)
== END ==
PROVIDERS: PCP Internal Medicine; Referring Provider Internal Medicine; Visit Provider Internal Medicine
DX: F32.9 Major depressive disorder, single episode, unspecified (principal); F41.9 Anxiety disorder, unspecified
CPT/HCPCS: 36415; 80053; 82607; 84439; 84443; 85025

== ENCOUNTER → 2020-04-18 14:08 | Outpatient (CLI) | payer OTHER, SELFPAY ==
[2019-12-29 09:53] VITALS: BMI 46.5
[2020-04-18 16:44] LABS: Absolute Lymphocyte Count 3.52 X10^3/uL (0.83-4.51); Absolute Neutrophil Count 3.2 X10^3/uL (2.0-7.7); Basophil# 0.08 X10^3/uL; Eosinophil# 0.21 X10^3/uL; Eosinophils% 2.5 % (0-5); Hematocrit 41.9 % (37-47); Hemoglobin 13.4 g/dL (12.0-15.0); Lymphocyte # 3.52 X10^3/ul (4.0); Lymphocyte % 42.7 % (19-41); Mean Corpuscular Hgb 30.5 pg (27.0-32.0); Mean Corpuscular Volume 95.4 fL (81-99); Mean Platelet Vol. 9.3 fl (6.2-12.0); Monocyte# 1.22 X10^3/uL; Monocyte% 14.8 % (0-10); NRBC Flagged by Analyzer 0 % (0-5); Neutrophil % 38.8 % (47-70); Platelet Count 319 K/mm3 (150-450); RBC Distribution Width CV 14.5 % (11.6-14.6); RBC Distribution Width SD 50.5 fl (35.1-43.9); Red Blood Count 4.39 M/mm3 (4.2-5.4); White Blood Count 8.3 K/mm3 (4.4-11.0)
[2020-04-18 18:01] LABS: hCG Titer Quant., Serum < 1 mIU/mL (1-3)
== END ==
PROVIDERS: PCP Internal Medicine; Referring Provider Obstetrics & Gynecology; Visit Provider Obstetrics & Gynecology
DX: N93.9 Abnormal uterine and vaginal bleeding, unspecified (principal)
CPT/HCPCS: 36415; 84702; 85025

== ENCOUNTER → 2020-04-19 07:52 | Outpatient (CLI) | payer OTHER, SELFPAY ==
[2019-12-29 09:53] VITALS: BMI 46.5
--- NOTE | 2020-04-19 07:53 | US_ITS ---
STUDY: ULTRASOUND OF THE FEMALE PELVIS - COMPLETE REASON FOR EXAM: Female, 34 years old. AUB LMP: 04/07/2020. TECHNIQUE: Transabdominal and Transvaginal TECHNICAL QUALITY: Adequate. COMPARISON: Comparison is made with prior study dated 04/27/2019. FINDINGS: The uterus is anteverted and is in a midline position. The uterus measures 9.1 cm x 5.6 cm x 3.8 cm. Normal uterine cervix. The endometrium measures 17 mm in thickness, and is heterogeneous (striated). There is no demonstrated endometrial mass. There is no demonstrated myometrial mass. I.U.D. - The patient does not have an I.U.D. The right ovary is visualized. The right ovary measures 3.6 cm x 2.2 cm x 2.5 cm. There is a 2.1 cm x 1.3 cm x 1.4 cm septated right ovarian cyst. There is no visualized right adnexal mass or complex lesion. There is normal arterial and normal venous vascularity. The left ovary is visualized. The left ovary measures 4.3 cm x 2.9 cm x 2.7 cm. There is a 3.8 cm x 2 cm x 2.3 cm left ovarian cyst. There is no visualized left adnexal mass or complex lesion. There is normal arterial and normal venous vascularity. There is no fluid in the cul-de-sac. The pre void volume of the bladder was 354 ml. Polycystic ovary disease: No. US/Transvaginal Non- IMPRESSION: Heterogeneously thickened endometrium. Bilateral ovarian cysts. The right ovarian cyst is septated. Follow-up is recommended. Electronically Signed: Gurmeet Whelan, at 11:58 EST , Service support ,
--- NOTE | 2020-04-19 07:53 | US_ITS ---
STUDY: ULTRASOUND OF THE FEMALE PELVIS - COMPLETE REASON FOR EXAM: Female, 34 years old. AUB LMP: 04/07/2020. TECHNIQUE: Transabdominal and Transvaginal TECHNICAL QUALITY: Adequate. COMPARISON: Comparison is made with prior study dated 04/27/2019. FINDINGS: The uterus is anteverted and is in a midline position. The uterus measures 9.1 cm x 5.6 cm x 3.8 cm. Normal uterine cervix. The endometrium measures 17 mm in thickness, and is heterogeneous (striated). There is no demonstrated endometrial mass. There is no demonstrated myometrial mass. I.U.D. - The patient does not have an I.U.D. The right ovary is visualized. The right ovary measures 3.6 cm x 2.2 cm x 2.5 cm. There is a 2.1 cm x 1.3 cm x 1.4 cm septated right ovarian cyst. There is no visualized right adnexal mass or complex lesion. There is normal arterial and normal venous vascularity. The left ovary is visualized. The left ovary measures 4.3 cm x 2.9 cm x 2.7 cm. There is a 3.8 cm x 2 cm x 2.3 cm left ovarian cyst. There is no visualized left adnexal mass or complex lesion. There is normal arterial and normal venous vascularity. There is no fluid in the cul-de-sac. The pre void volume of the bladder was 354 ml. Polycystic ovary disease: No. US/Pelvic (Non ) IMPRESSION: Heterogeneously thickened endometrium. Bilateral ovarian cysts. The right ovarian cyst is septated. Follow-up is recommended. Electronically Signed: Gurmeet Whelan, at 11:58 EST , Service support ,
== END ==
PROVIDERS: PCP Internal Medicine; Referring Provider Obstetrics & Gynecology; Visit Provider Obstetrics & Gynecology
DX: N93.9 Abnormal uterine and vaginal bleeding, unspecified (principal); N83.202 Unspecified ovarian cyst, left side; N83.201 Unspecified ovarian cyst, right side; R93.89 Abnormal findings on diagnostic imaging of other specified body structures
CPT/HCPCS: 76830; 76856; 93976

== ENCOUNTER → 2020-05-23 12:18 | Outpatient (CLI) | payer OTHER, SELFPAY ==
[2020-04-19 14:10] VITALS: BMI 51.5
[2020-05-23 12:56] LABS: Absolute Lymphocyte Count 4.12 X10^3/uL (0.83-4.51); Absolute Neutrophil Count 3.3 X10^3/uL (2.0-7.7); Basophil# 0.06 X10^3/uL; Basophil% 0.7 % (0-1); Eosinophil# 0.13 X10^3/uL; Eosinophils% 1.5 % (0-5); Hematocrit 43.9 % (37-47); Hemoglobin 14.1 g/dL (12.0-15.0); Lymphocyte # 4.12 X10^3/ul (4.0); Mean Corp Hgb Conc 32.1 g/dL (32-36); Mean Corpuscular Hgb 30.1 pg (27.0-32.0); Mean Corpuscular Volume 93.6 fL (81-99); Monocyte# 0.98 X10^3/uL; Monocyte% 11.4 % (0-10); NRBC Flagged by Analyzer 0 % (0-5); Neutrophil # 3.26 X10^3/uL (2.7-7.7); Neutrophil % 38.1 % (47-70); Platelet Count 329 K/mm3 (150-450); RBC Distribution Width CV 14.4 % (11.6-14.6); RBC Distribution Width SD 49.6 fl (35.1-43.9); Red Blood Count 4.69 M/mm3 (4.2-5.4); White Blood Count 8.6 K/mm3 (4.4-11.0)
== END ==
PROVIDERS: PCP Internal Medicine; Visit Provider Obstetrics & Gynecology
DX: N93.9 Abnormal uterine and vaginal bleeding, unspecified (principal)
CPT/HCPCS: 36415; 85025; 86850; 86900; 86901; 87086; 87088

== ENCOUNTER 2020-05-31 08:33 | Day surgery (SDC) | payer OTHER, SELFPAY ==
[2020-04-19 14:10] VITALS: BMI 51.5
--- NOTE | 2020-05-31 | EMB_PTH ---
PATIENT: AISHWARYA JONES LOC: [facility] [place] U#:[id number] AGE/SX: 34/F ROOM: RE05/31/[address]: Dr. Jayleen Marrufo MD : [id number] BED: DIS: 05/31/2020 SPEC #: [id number] RECD: 05/31/20 12:38 STATUS: REY REJosefina #: [id number] MINA: 05/31/20 00:[address]: Jayleen Marrufo DEPT: SURGICAL PATHOLOGY RECD BY: Cole Chin ENTERED: 05/31/20 12:38 SP TYPE: ENDOM BX/C PALMER DR: No Primary Care Phys Tissues: Endometrium, NOS Procedures: Surgery Specimen Level IV HEADER OPERATION: Hysteroscopy, dilation and curettage PRE-OP DIAGNOSIS: Complex ovarian cyst; abnormal uterine bleeding TISSUE SUBMITTED: Endometrial curettings MICROSCOPIC DIAGNOSIS Endometrial curettings: Extensive exogenous hormone effects with breakdown. Focal secretory changes. See comment. SJ:marcia 06/01/2020 COMMENT Correlation with clinical findings and appropriate follow up are necessary. MICROSCOPIC DESCRIPTION Slides are reviewed. GROSS DESCRIPTION Received in fixative is one container labeled with the patient's name and designated endometrial curettings. The specimen consists of multiple irregular fragments of pink-red hemorrhagic soft tissue that in aggregate measure 5 x 3 x 0.8 cm. The specimen is totally submitted in four cassettes. / JAY JAY:marcia 05/31/20 TC:5 CPT: 81061
--- NOTE | 2020-05-31 08:53 | PCM.HP.STD ---
Problem List (1) Complex ovarian cyst Status: Acute Comment: benign appearance but has pelvic pain- recommend diagnostic laparoscopy for evaluation, possible cystectomy (2) Abnormal uterine bleeding Status: Acute Comment: persistent- failed medical management recommend d and c hysterosocpy (3) Anxiety and depression Status: Chronic Comment: celexa, encouraged counseling History of Present Illness Date of Admission: 05/31/20 The patient is a 34 year old F presents with acute worsening lower pelvic pain and irregular uterine bleeding despite hormonal interventions. She has a history of a complex ovarian cyst and pelvic pain with this. US findiings- The right ovary is visualized. The right ovary measures 3.6 cm x 2.2 cm x 2.5 cm. There is a 2.1 cm x 1.3 cm x 1.4 cm septated right ovarian cyst. There is no visualized right adnexal mass or complex lesion. There is normal arterial and normal venous vascularity. The left ovary is visualized. The left ovary measures 4.3 cm x 2.9 cm x 2.7 cm. There is a 3.8 cm x 2 cm x 2.3 cm left ovarian cyst. There is no visualized left adnexal mass or complex lesion. There is normal arterial and normal venous vascularity. Past Medical History Past Medical History (Chronic Problems): Chronic Problems (Last Reviewed 04/19/20 @ 14:11 by Tatum Schmitt) Anxiety and depression (Chronic) celexa, encouraged counseling Medical History: Medical History (Last Reviewed 04/19/20 @ 14:11 by Tatum Schmitt) Breast cyst N60.09 Fatigue R53.83 Fever R50.9 Heart murmur R01.1 History of miscarriage Z87.59 No significant medical problems Polycystic ovaries E28.2 Allergies latex Allergy (Mild, Verified 05/31/20 08:49) SWELLING, IRRATATION Home Medications: Ambulatory Orders Medication Instructions Recorded citalopram 20 mg tablet 20 mg PO DAILY #30 tab 04/19/20 norethindrone acetate 5 mg tablet 5 mg PO .COMPLEX #45 tab 05/18/20 Surgical History: Surgical History (Last Reviewed 04/19/20 @ 14:11 by Tatum Schmitt) History of dilatation and curettage Z98.890 History of tonsillectomy Z90.89 Surgical History: tonsillectomy Psychiatric History: No pertinent psych hx 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 Smoking Status: Never smoker Tobacco Use: Non-smoker - *Family History Paternal Family History: Family History (Last Reviewed 04/19/20 @ 14:11 by Tatum Schmitt) Father Heart disease Myocardial infarction Other Anemia Arthritis Autoimmune disorder CVA (cerebral vascular accident) Colon cancer Respiratory disease History Items: Diabetes, Heart Disease Review of Systems Constitutional: Denies: Fever, Malaise Eyes: Denies: Blurred vision, Vision Change HEENT: Denies: Head Aches, Visual Changes Cardiovascular: Denies: Chest Pain, Palpitations Respiratory: Denies: Cough, Shortness of Breath, Wheezing Gastrointestinal: Reports: Abdominal Pain, Nausea. Denies: Diarrhea, Vomiting Genitourinary: Denies: Dysuria, Hematuria Gynecological: Reports: Vaginal bleeding Musculoskeletal: Denies: Joint Pain, Muscle pain Skin: Denies: Lesions, Rash Neurological: Denies: Blurred vision, Focal weakness, Headaches Psychiatric: Denies: Anxiety, Depression Endocrine: Denies: Heat/ Cold Intolerance Hematologic/ Lymphatic: Denies: Easy Bruising, Easy Bleeding VTE Information - Inpt Only VTE Present on Admission: No - Physical Exam Vitals/I&O's: Body Mass Index (BMI) 51.5 General: Alert, Oriented x3 HEENT: Atraumatic, Normocephalic Oral: Moist Mucosa Neck: Supple, Trachea Midline, Thyroid Normal Size and Texture Lungs: Clear to auscultation, Normal air movement Cardiovascular: Regular rate, Regular Rhythm Abdomen: Soft, Non Tender, Non-Distended Extremities: No edema Skin: No rashes Musculoskeletal: No Tenderness to Palpation of Joints or Extremities, No Muscle Wasting Lymphatic: No Cervical, Supraclavicular, or Inguinal Adenopathy Neurological: Neuro grossly intact Psych/Mental Status: Normal Affect, Appropriate Microbiology Past 72 Hours 05/30/20 08:40 Interface Orders SARS-CoV-2 Antigen (Rapid) - Final Laboratory Results 05/30/20 08:09: Blood Type O NEGATIVE, Antibody Screen NEGATIVE Assessment/Plan All Active Problems (Last Reviewed 04/19/20 @ 14:11 by Tatum Schmitt) Complex ovarian cyst (Acute) Abnormal uterine bleeding (Acute) 7 weeks gestation of (Resolved) BMI greater than 40 (Resolved) Family history of cystic fibrosis (Resolved) Inevitable (Resolved) (Resolved) Rh negative status during (Resolved) Sinusitis, acute (Resolved) Supervision of normal (Resolved) no medical prob (Resolved) 34 yo with AUB, acute pelvic pain, and complex ovarian cyst recommend d and c hysteroscopy diagnostic laparoscopy possible cystectomy After discussing the patient's diagnosis and treatment plan options, patient wishes to proceed with surgical management. I have discussed with the patient the risks, benefits, and alternatives of the procedure which include but are not limited to risks of anesthesia, bleeding, infection, possible damage to bowel, bladder, or surrounding vasculature which could lead to additional surgery to evaluate any complications. Patient agrees to procedure and wishes to proceed. ACOG/uptodate references given for additional information regarding procedure.
[2020-05-31 09:11] VITALS: BP 162/96; PULSE 90; RESP 16; TEMP 36.6; O2SAT 96; BMI 52.7
[2020-05-31 09:18] LABS: Internal QC Validated? YES +Cl - CLEAR BKGD; Pregnancy, Urine Negative Negative
--- NOTE | 2020-05-31 10:39 | OP.PCM_ITS ---
Problem List (1) Complex ovarian cyst Status: Acute Comment: benign appearance but has pelvic pain- recommend diagnostic laparoscopy for evaluation, possible cystectomy (2) Abnormal uterine bleeding Status: Acute Comment: persistent- failed medical management recommend d and c hysterosocpy (3) Anxiety and depression Status: Chronic Comment: jenna kennedy counseling Report of Operation Date of Procedure: 05/31/20 Pre-Operative Diagnosis: pelvic pain AUB complex ovarian cysts Post-Operative Diagnosis: same Surgery/Procedure Performed:: d and c hysteroscopy diagnostic laparoscopy Description of Surgical Findings:: bilateral nl ovaries, serosal 2 cm fibroid, thickened endometrial lining assistant county attorney: Sukhdev Zafar Type of Anesthesia:: General Special Medications: none Specimen's removed: emc Drains: none Estimated Blood Loss (mL): minimal Fluids Replaced: crystalloid Description of Procedure: Patient was taken in the operating room and was placed under general anesthesia was prepped and draped in normal sterile fashion in the dorsal lithotomy position. Bladder was drained of clear urine and SCDs were on preoperatively. Uterus was sounded and a uterine manipulator was placed after dilating. At tention was then paid to the abdominal portion of the procedure and the umbilicus was elevated with towel clamps and injected with Marcaine and after a 5 mm incision was made and the Veress needle was entered into the abdomen confirmed to be intra-abdominal with a low opening pressure of less than 8 mmHg. Abdomen was insufflated with CO2 gas and a 5 mm optical was placed under direct visualization. A left lower quadrant 5 mm port was placed under direct visualization. Uterus was well visualized and the bilateral ovaries were seen and noted to be within normal limits with no cystic appearance. all instruments removed from the abdomen after gas was desufflated. Port sites were closed with 3-0 Monocryl Steri's and op sites were applied. A weighted speculum was placed in the vagina and the anterior lip of the cervix was grasped with a single-tooth tenaculum. A paracervical block was placed with 1% lidocaine. Cervix was progressively dilated to allow passage of a 5 mm hysteroscope. The lining was fully visualized and noted to have significantly thickened lining with no gross abnormalities. Uterine sounded to 9 cm. Curettage was performed and large amount of tissue was obtained, sent to pathology. All instruments were removed from the vagina and excellent hemostasis was noted. Patient was awoken and taken to recovery in stable condition. Grafts/Implants Used: none - Complications none Multi Select Codes - Urinary/Genital Urinary/Genital CPT Codes: 25319 Hysteroscopy,EMC, Polypectomy, Other Procedure See Report - [id number]
--- NOTE | 2020-05-31 10:47 | PCM.DC.TUB ---
Discharge Diet: No Restrictions - Increase fluid intake for the next 48 hours. Discharge Activity: Return to Normal Activity, May Drive - when you are no longer taking narcotic pain medications., May Shower, May Take a Tub Bath - in 7 days Additional Activity Instructions:: Ambulate often the next week after surgery. Nothing in the vagina for 5 days. Call your doctor if your incision/area has: Continuous Slow Oozing, Sudden Increased Bleeding, Increased Pain/ Swelling, Increased Redness, Foul Smelling Discharge Call your doctor if you observe: Fever of 101 or Higher Allergies/Adverse Reactions: Allergies latex Allergy (Mild, Verified 05/31/20 08:49) SWELLING, IRRATATION Medications to take at Discharge citalopram 20 mg tablet 20 mg PO DAILY #30 tab 04/19/20 norethindrone acetate 5 mg tablet 5 mg PO .COMPLEX #45 tab 05/18/20 Naproxen [Naprosyn] 250 - 500 mg PO Q8H PRN PRN #30 tab 05/31/20 Oxycodone HCl/Acetaminophen [Percocet 5-325] 1 - 2 tablet PO Q6H PRN PRN 7 Days #15 tablet 05/31/20 The following prescriptions were given: Naproxen [Naprosyn] 250 - 500 mg PO Q8H PRN PRN #30 tab PRN Reason: MILD PAIN Transmission Status: Pending to [facility] Oxycodone HCl/Acetaminophen [Percocet 5-325] 1 - 2 tablet PO Q6H PRN PRN 7 Days #15 tablet PRN Reason: Pain Transmission Status: Sent to [facility] Primary Care Physician: Care Physician,No Primary [Primary Care Provider] - Test Results: Test results from this visit will be discussed in further detail at your follow-up appointment, if applicable. Please Follow Up With: Jayleen Marrufo MD - [phone]
[2020-05-31] MEDS: Bupivacaine 0.25% 30 ML Vial (11:00)
[2020-05-31] MEDS: Lidocaine 1% (20 ml mdv) 20 ML Vial (11:00)
[2020-05-31 11:23] VITALS: BP 162/96; BP 164/91; PULSE 90; RESP 16; TEMP 36.3; O2SAT 94
[2020-05-31 11:30] VITALS: BP 151/96; BP 162/96; PULSE 78; RESP 18; O2SAT 95
[2020-05-31 11:45] VITALS: BP 147/83; BP 162/96; PULSE 72; RESP 16; O2SAT 96
[2020-05-31 11:56] VITALS: BP 136/70; BP 162/96; PULSE 77; RESP 16; TEMP 37; O2SAT 97
[2020-05-31 12:55] VITALS: BP 138/81; BP 162/96; PULSE 84; RESP 16; TEMP 37.2; O2SAT 98
== END 2020-05-31 13:04 | disposition home or self-care (01) ==
LOC: SDC 08:35 → AC 08:36
PROVIDERS: Anesthesiology; Referring Provider Obstetrics & Gynecology; Visit Provider Obstetrics & Gynecology
PROC: 0UDB8ZZ Extraction of Endometrium, Via Natural or Artificial Opening Endoscopic (ICD-10-PCS; CPT 58558; principal; 2020-05-31 10:15)
PROC: (CPT 49320; 2020-05-31 10:15)
DX: N92.6 Irregular menstruation, unspecified (principal); N83.201 Unspecified ovarian cyst, right side; F32.9 Major depressive disorder, single episode, unspecified; F41.9 Anxiety disorder, unspecified; Z79.3 Long term (current) use of hormonal contraceptives; Z79.899 Other long term (current) drug therapy
CPT/HCPCS: 00952; 58558; 81025; 86850; 86900; 86901; 87426; 88305; C9803; J7120; J2405

== ENCOUNTER → 2020-09-02 11:22 | Outpatient (CLI) | payer OTHER, SELFPAY ==
[2020-09-02 10:41] VITALS: BMI 52.4
[2020-09-02 11:44] LABS: Absolute Lymphocyte Count 2.72 X10^3/uL (0.83-4.51); Basophil# 0.05 X10^3/uL; Basophil% 0.7 % (0-1); Eosinophil# 0.17 X10^3/uL; Eosinophils% 2.5 % (0-5); Hematocrit 42.8 % (37-47); Hemoglobin 13.8 g/dL (12.0-15.0); Lymphocyte # 2.72 X10^3/ul (0.83-4.51); Lymphocyte % 40.1 % (19-41); Mean Corp Hgb Conc 32.2 g/dL (32-36); Mean Corpuscular Hgb 30.3 pg (27.0-32.0); Mean Corpuscular Volume 93.9 fL (81-99); Mean Platelet Vol. 9.1 fl (6.2-12.0); Monocyte# 0.84 X10^3/uL; Monocyte% 12.4 % (0-10); NRBC Flagged by Analyzer 0 % (0-5); Neutrophil # 2.99 X10^3/uL (2.7-7.7); Neutrophil % 44.2 % (47-70); Platelet Count 322 K/mm3 (150-450); RBC Distribution Width CV 14.6 % (11.6-14.6); RBC Distribution Width SD 51.3 fl (35.1-43.9); Red Blood Count 4.56 M/mm3 (4.2-5.4); White Blood Count 6.8 K/mm3 (4.4-11.0)
[2020-09-02 12:10] LABS: Vitamin D,25 Hydroxy 16.2 ng/mL
[2020-09-02 12:14] LABS: T4 Free Direct 0.93 ng/dL (0.76-1.46); Thyroid Stim Hormone (TSH) 1.42 uIU/mL (0.358-3.74)
== END ==
PROVIDERS: Referring Provider Obstetrics & Gynecology; Visit Provider Obstetrics & Gynecology
DX: N93.9 Abnormal uterine and vaginal bleeding, unspecified (principal)
CPT/HCPCS: 36415; 82306; 84439; 84443; 85025

== ENCOUNTER → 2024-11-11 | Outpatient (CLI) | payer OTHER, SELFPAY ==
--- NOTE | 2024-11-11 08:07 | BI_ITS ---
EXAM: SCRN MAMM (CAD)W/CHOCO BILAT DATE: 11/11/2024 CLINICAL HISTORY: F, Age 39 y/o , SCREENING TECHNIQUE: SCRN MAMM (CAD)W/CHOCO BILAT COMPARISON: Prior exam(s) dated 10/04/2023, 09/25/2023, 08/11/2018. FINDINGS: TISSUE DENSITY: The breast tissue is composed of scattered areas of fibroglandular density. Bilateral Breast Mammographic Findings: There is a mass with an adjacent biopsy marker clip in the slightly lower slightly inner right breast at middle depth, the outside pathology benign mildly proliferative fibrocystic disease without atypia. Otherwise, there are no significant masses, calcifications or other abnormalities are identified. BI/SCRN MAMM (CAD)W/CHOCO BILAT IMPRESSION: There is no mammographic evidence of malignancy. OVERALL FINAL ASSESSMENT BI-RADS 2: BENIGN RECOMMEND ANNUAL MAMMOGRAPHIC SCREENING. RECOMMENDATION: Routine annual follow-up in 1 Year A letter with findings and recommendations will be mailed to the patient. Reading Location: [id number]
== END | disposition home or self-care (01) ==
LOC: OPBI 08:05
PROVIDERS: PCP Nurse Practitioner; Referring Provider Obstetrics & Gynecology; Visit Provider Obstetrics & Gynecology
DX: Z12.31 Encounter for screening mammogram for malignant neoplasm of breast (principal)
CPT/HCPCS: 77063; 77067